=== PATIENT | female | born 1965 | race Caucasian/White ===

== ENCOUNTER 2017-07-26 12:53 | Emergency (ER) | payer MEDICARE ==
--- NOTE | 2017-07-26 14:02 | RAD ---
LEFT KNEE FOUR VIEWS: HISTORY: Left knee pain. FINDINGS/IMPRESSION: No fracture, dislocation, or bony destruction is identified. No significant osteophytosis is seen. POS: OFF
== END 2017-07-26 15:20 | disposition home or self-care (01) ==
LOC: MADERS 12:53
DX: S83.422A Sprain of lateral collateral ligament of left knee, initial encounter (principal); I10 Essential (primary) hypertension; J45.909 Unspecified asthma, uncomplicated; F31.9 Bipolar disorder, unspecified; F17.210 Nicotine dependence, cigarettes, uncomplicated; Z79.899 Other long term (current) drug therapy; X58.XXXA Exposure to other specified factors, initial encounter

== ENCOUNTER 2019-01-10 13:16 | Emergency (ER) | payer MEDICARE, MEDICAID ==
--- NOTE | 2019-01-10 14:02 | RAD ---
EXAM: XR Shoulder Lt 3 View STANDARD PROVIDED CLINICAL HISTORY: Pain FINDINGS: There is no evidence for fracture or other acute osseous abnormality. Alignment appears anatomic. Natalia nt spaces appear preserved. Mild acromioclavicular joint osteoarthrosis. Visualized left lung field appears clear. IMPRESSION: No evidence for an acute osseous abnormality. If there is persistent clinical concern, conservative m anagement and follow-up imaging advised.
== END 2019-01-10 14:20 | disposition home or self-care (01) ==
LOC: MADERS 13:16
DX: M25.512 Pain in left shoulder (principal); I10 Essential (primary) hypertension; J45.909 Unspecified asthma, uncomplicated; F31.9 Bipolar disorder, unspecified; F17.210 Nicotine dependence, cigarettes, uncomplicated

== ENCOUNTER 2023-05-17 16:40 | Emergency (ER) | payer MEDICARE, MEDICAID ==
[2023-05-17] MEDS ORDERED: Amoxicillin/Potassium Clav 875 MG TAB ONE (17:15)
[2023-05-17] MEDS ORDERED: HYDROcodone/Acetaminophen 5/325 mg Tablet ONE (17:15)
== END 2023-05-17 17:20 | disposition home or self-care (01) ==
LOC: MADERS 16:40
DX: K04.7 Periapical abscess without sinus (principal); J32.0 Chronic maxillary sinusitis; E11.9 Type 2 diabetes mellitus without complications; I10 Essential (primary) hypertension; F17.210 Nicotine dependence, cigarettes, uncomplicated; J45.909 Unspecified asthma, uncomplicated; Z79.899 Other long term (current) drug therapy; Z79.84 Long term (current) use of oral hypoglycemic drugs
CPT/HCPCS: 99282

== ENCOUNTER 2023-11-09 12:51 | Emergency (ER) | payer MEDICARE, MEDICAID ==
[2023-11-09] MEDS ORDERED: Amoxicillin/Potassium Clav 875 MG TAB ONE (13:36)
[2023-11-09] MEDS ORDERED: Ketorolac Tromethamine 30 MG (1 mL) VIAL ONE (13:36)
== END 2023-11-09 14:00 | disposition home or self-care (01) ==
LOC: MADERS 12:51
DX: K02.9 Dental caries, unspecified (principal); E11.9 Type 2 diabetes mellitus without complications; F17.210 Nicotine dependence, cigarettes, uncomplicated; I10 Essential (primary) hypertension
CPT/HCPCS: 96372; 99282; J1885